=== PATIENT | female | born 1990 | race Hispanic/Latino ===

== ENCOUNTER 2021-08-07 15:39 | Emergency (ER) | payer OTHER ==
[~2021-08-07] VITALS: Ht 149.9 cm; Wt 56.7 kg
[2021-08-07 15:41] VITALS: BP 123/64
[2021-08-07 15:59] LABS: BASOPHILS % (AUTO) 0.6 % (0.0-5.0); EOSINOPHILS % (AUTO) 7.5 % (0.0-8.0); HEMATOCRIT 35.6 % (36-48); LYMPHOCYTES % (AUTO) 28.1 % (21.0-51.0); MEAN CORPUSCULAR HEMOGLOBIN 29.1 pg (27.0-33.0); MEAN CORPUSCULAR HGB CONC 31.5 g/dL (32.0-36.0); MEAN CORPUSCULAR VOLUME 92.5 fL (79-99); MONOCYTES % (AUTO) 9.7 % (3.0-13.0); PLATELET COUNT (AUTO) 275 K/uL (130-400); RED BLOOD CELL COUNT(AUTO) 3.85 MIL/uL (4.00-5.50); RED CELL DISTRIBUTION WIDTH 13.2 % (11.0-15.5); WHITE BLOOD COUNT (AUTO) 6.9 K/uL (4.8-10.8)
[2021-08-07 16:11] LABS: CREATININE 0.5 mg/dL (0.5-1.5); POTASSIUM 3.8 mmol/L (3.5-5.1)
[2021-08-07 16:18] LABS: BILIRUBIN,TOTAL 0.5 mg/dL (0.2-1.0)
[2021-08-07] MEDS ORDERED: LORAZEPAM 1 MG TABLET PO ONE (16:30)
[2021-08-07 17:04] LABS: APPEARANCE,URINE Clear (CLEAR); BILIRUBIN,URINE Negative (NEGATIVE); COLOR,URINE Yellow (YELLOW); GLUCOSE, URINE (UA) Negative (NEGATIVE); KETONES,URINE 15 mg/dL (NEGATIVE); LEUKOCYTE ESTERASE ,URINE Trace (NEGATIVE); NITRATE,URINE Positive (NEGATIVE); OCCULT BLOOD,URINE Negative (NEGATIVE); PROTEIN,URINE Negative (NEGATIVE); UROBILINOGEN,URINE 0.2 mg/dL (0.2-1.0)
[2021-08-07] MEDS ORDERED: LORAZEPAM 1 MG TABLET ONE (17:07)
[2021-08-07] MEDS ORDERED: CEFTRIAXONE 1G VIAL IM ONE (17:30)
[2021-08-07 17:31] LABS: BACTERIA,URINE Moderate /HPF (None Seen); MUCUS,URINE Moderate LPF (None Seen); SQUAMOUS EPITHELIAL CELL,UR Many /HPF (0-2)
[2021-08-07] MEDS ORDERED: CEFTRIAXONE 1G VIAL ONE (17:33)
[2021-08-07] MEDS ORDERED: LIDOCAINE HCL MPF 1% 5ML VIAL ONE (17:34)
[2021-08-07] MEDS ORDERED: HYDR-3421 PO (17:35)
[2021-08-07] MEDS ORDERED: CEPH500B PO (17:35)
== END 2021-08-07 17:58 | disposition home or self-care (01) ==
LOC: EDH 15:39
DX: N39.0 Urinary tract infection, site not specified (principal); F41.9 Anxiety disorder, unspecified; R07.89 Other chest pain
CPT/HCPCS: 36415; 71045; 80053; 81001; 81025; 84484; 85025; 87088; 93005; 96372; 99285; J0696; J3490